=== PATIENT | female | born 1990 | race Caucasian/White ===

== ENCOUNTER 2019-10-09 22:51 | Emergency (ER) | payer SELFPAY ==
[2019-10-09 23:02] VITALS: BP 123/78
== END 2019-10-10 00:32 | disposition left against medical advice (07) ==
LOC: ED 22:51
DX: G43.909 Migraine, unspecified, not intractable, without status migrainosus (principal); Z53.21 Procedure and treatment not carried out due to patient leaving prior to being seen by health care provider